=== PATIENT | female | born 2000 | race Caucasian/White ===

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

== ENCOUNTER 2020-02-24 02:04 | Emergency (ER) | payer BC, MEDICAID ==
[~2020-02-24] VITALS: Ht 162.6 cm; Wt 58.0 kg
[2020-02-24] MEDS ORDERED: PENI500T (02:16)
[2020-02-24] MEDS ORDERED: NS 1,000 ML IV SCH (02:45)
[2020-02-24 03:00] LABS: HEMATOCRIT 34.3 % (36.0-47.0); HEMOGLOBIN 11.2 g/dl (12.0-15.5); MEAN CORPUSCULAR HEMOGLOBIN 28.8 pg (27.0-33.0); MEAN CORPUSCULAR HGB CONC 32.7 g/dl (32.0-36.5); MEAN CORPUSCULAR VOLUME 88.2 fl (80.0-96.0); PLATELET COUNT, AUTOMATED 365 10^3/uL (150-450); RED BLOOD COUNT 3.89 10^6/uL (4.00-5.40); WHITE BLOOD COUNT 16.3 10^3/uL (4.0-10.0)
[2020-02-24 03:35] LABS: BLOOD UREA NITROGEN 10 MG/DL (7-18); CALCIUM LEVEL 8.7 MG/DL (8.5-10.1); CARBON DIOXIDE LEVEL 27 MEQ/L (21-32); CHLORIDE LEVEL 105 MEQ/L (98-107); CREATININE FOR GFR 0.61 MG/DL (0.55-1.30); GLUCOSE, FASTING 97 MG/DL (70-100); HCG, SERUM QUANTITATIVE 924 MIU/ML; POTASSIUM SERUM 4.5 MEQ/L (3.5-5.1); SODIUM LEVEL 139 MEQ/L (136-145)
[2020-02-24] MEDS ORDERED: FLAG500T PO (05:20)
[2020-02-24] MEDS ORDERED: metroNIDAZOLE (FLAGYL) 500MG TABLET PO ONE (05:30)
[2020-02-24 05:44] VITALS: BP 118/60
--- NOTE | 2020-03-03 11:52 | REP ---
FIRST TRIMESTER ULTRASOUND HISTORY: Complete , rule out retained products of conception. TECHNIQUE: Real-time sonographic evaluation of the pelvis is performed utilizing transabdominal technique. FINDINGS: Uterus measures 11.3 x 6.1 x 7.0 cm. Endometrial thickness is variable throughout and the endometrium is mildly heterogeneous. In the region of the fundus, the AP diameter is 18 mm. In the region of the lower uterine segments AP diameter is somewhat less. There is no compelling sonographic evidence of retained products of conception. No endometrial fluid collection is seen. No intrauterine is seen. There appear to be echogenic blood clots in the lower uterine segment and vagina. Ovaries are normal in size and echotexture with no torsion with duplex Doppler evaluation. Right ovary measures 3.1 x 2.0 x 2.3 cm and the left ovary 2.9 x 1.8 x 3.2 cm. No free fluid is seen. IMPRESSION: No intrauterine gestation. Variable endometrial thickening up to 18 mm with no endometrial fluid collection and no definite sonographic evidence of retained products of conception. There does appear to be echogenic blood clots in the lower uterine segment and vagina. Preliminary report provided by [facility] at the time of the exam. [facility]
== END 2020-02-24 06:08 | disposition home or self-care (01) ==
LOC: M ED 02:04
DX: O03.9 Complete or unspecified spontaneous abortion without complication (principal)

== ENCOUNTER → 2021-03-24 | Outpatient (CLI) | payer MEDICAID, OTHER ==
--- NOTE | 2021-03-24 12:06 | REP ---
INDICATION: ANATOMY. COMPARISON: None. TECHNIQUE: Real-time sonographic evaluation of the gravid uterus performed. FINDINGS: Estimated gestational age is21 weeks 4 days, EDC 07/31/2021. Today's measurements indicate appropriate growth. Presentation: Cephalic Placenta posterior and fundal, grade 0, without evidence of placenta previa. heart rate is recorded at 147 beats per minute. Amniotic fluid is subjectively normal. Closed cervical length is measured at 3.9 cm. Biometry chart: BPD: 55 mm, 22 weeks 5 days, 80th percentile. HC: 196 mm, 21 weeks 6 days, 58th percentile AC: 170 mm, 22 weeks 0 days, 58th percentile Femur length: 36 mm, 21 weeks 2 days, 42nd percentile HC to AC ratio: 1.16, normal range 1.05-1.24. Estimated weight: 444g, 51st percentile. anatomy: Cranium: Grossly normal Lateral Ventricles/Choroid Plexus: Grossly normal Posterior Fossa/Cerebellum: Grossly normal Nose/lips/profile: Grossly normal Four chamber heart: Grossly normal Right ventricular outflow tract: Grossly normal Left ventricular outflow tract: Grossly normal Left-sided stomach: Grossly normal Kidneys: Grossly normal Bladder: Grossly normal Cord Insertion: Grossly normal 3 vessel cord: Grossly normal Spine: Grossly normal IMPRESSION: Viable single intrauterine gestation as above. <Electronically signed by Zuhair Krishnan > 03/24/21 1209
== END ==
LOC: M WHC 09:27
PROVIDERS: ATTEND Advanced Practice Midwife
DX: Z34.82 Encounter for supervision of other normal pregnancy, second trimester (principal); Z3A.21 21 weeks gestation of pregnancy

== ENCOUNTER → 2021-05-11 | Outpatient (CLI) | payer OTHER ==
[2021-05-11 11:17] LABS: HEMATOCRIT 33.8 % (36.0-47.0); HEMOGLOBIN 10.8 g/dl (12.0-15.5); MEAN CORPUSCULAR HEMOGLOBIN 29.7 pg (27.0-33.0); MEAN CORPUSCULAR VOLUME 92.9 fl (80.0-96.0); PLATELET COUNT, AUTOMATED 416 10^3/uL (150-450); RED BLOOD COUNT 3.64 10^6/uL (4.00-5.40); WHITE BLOOD COUNT 12.6 10^3/uL (4.0-10.0)
[2021-05-11 12:55] LABS: GC DNA AMPLIFICATION NEGATIVE (NEGATIVE)
== END ==
LOC: M PLALAB 08:16
PROVIDERS: ATTEND Specialist
DX: Z00.00 Encounter for general adult medical examination without abnormal findings (principal); N39.9 Disorder of urinary system, unspecified

== ENCOUNTER → 2021-07-10 | Outpatient (REF) | payer OTHER | LOC: M PLALAB 10:40 | PROVIDERS: ATTEND Obstetrics & Gynecology | DX: Z34.93 Encounter for supervision of normal pregnancy, unspecified, third trimester (principal) ==

== ENCOUNTER 2021-07-26 17:44 | Inpatient (IN) | payer OTHER ==
[~2021-07-26] VITALS: Ht 162.6 cm; Wt 67.3 kg
[2021-07-26] VITALS (16 sets, daily range): BP systolic 94–130; BP diastolic 51–84
[2021-07-26] MEDS ORDERED: PRENTAB9 PO (18:08)
[2021-07-26] MEDS ORDERED: HOME MED LIST COMPLETE! XX SCH (18:10)
[2021-07-26] MEDS ORDERED: TRANEXAMIC ACID INJection 1,000 MG in NS 100 ML IV PRN (19:10)
[2021-07-26] MEDS ORDERED: METHYLERGONOVINE MALEATE 0.2 MG/ML VIAL (J2210) IM PRN (19:10)
[2021-07-26] MEDS ORDERED: LIDOCAINE 1% MDV 20ML VIAL INFIL PRN (19:10)
[2021-07-26] MEDS ORDERED: CARBOPROST TROMETHAMINE 250 MCG/ML AMP IM PRN (19:10)
[2021-07-26 19:37] LABS: HEMATOCRIT 32.4 % (36.0-47.0); HEMOGLOBIN 10.6 g/dl (12.0-15.5); MEAN CORPUSCULAR HEMOGLOBIN 27.7 pg (27.0-33.0); MEAN CORPUSCULAR HGB CONC 32.7 g/dl (32.0-36.5); MEAN CORPUSCULAR VOLUME 84.8 fl (80.0-96.0); PLATELET COUNT, AUTOMATED 497 10^3/uL (150-450); RED BLOOD COUNT 3.82 10^6/uL (4.00-5.40); WHITE BLOOD COUNT 15.1 10^3/uL (4.0-10.0)
[2021-07-26] MEDS: LR 1,000 ML IV SCH ×2 (19:41→21:46)
[2021-07-26] MEDS ORDERED: FENTANYL 2MCG/ML ROPIVACAINE 0.2% IN 0.9% NACL 100ML IVBAG As Ordered ONE (20:36)
[2021-07-26 20:55] LABS: HIV 1&2 SCREEN CENTAUR NEGATIVE (NEGATIVE)
[2021-07-26] MEDS ORDERED: EPIDURAL COMMENT XX SCH (22:00)
[2021-07-26] MEDS ORDERED: ePHEDrine SULFATE 25 MG/5 ML(5MG/ML) SYRINGE IV PRN (22:00)
[2021-07-26] MEDS ORDERED: NALOXONE INJ 0.4MG/1ML VIAL (J2310 PER 1MG) IV PRN (22:00)
[2021-07-26] MEDS ORDERED: diphenhydrAMINE 50MG/ML VIAL (J1200) IV PRN (22:00)
[2021-07-26] MEDS ORDERED: FENTANYL/ROPIVACAINE/NACL BAG 100 ML EPIDURAL SCH (22:00)
[2021-07-26] MEDS ORDERED: ONDANSETRON 4MG/2ML VIAL IV PRN (22:00)
[2021-07-26] MEDS ORDERED: REFRIGERATOR IV KEYS XX PRN (22:00)
[2021-07-26] MEDS ORDERED: EPIDURAL/PCA KEYS XX PRN (22:00)
[2021-07-26] MEDS ORDERED: LACTATED RINGER'S 1000 ML IV PRN (22:00)
[2021-07-27] VITALS (11 sets, daily range): BP systolic 107–137; BP diastolic 56–82
[2021-07-27] MEDS ORDERED: OXYTOCIN 30 UNITS IN 0.9% NaCl 500ML IV BAG (J2590) As Ordered ONE (01:23)
[2021-07-27] MEDS ORDERED: IBUPROFEN 600MG TAB PO PRN (01:50)
[2021-07-27] MEDS ORDERED: DOCUSATE SODIUM 100MG CAPSULE PO PRN (01:50)
[2021-07-27] MEDS ORDERED: ACETAMINOPHEN TAB 650MG DOSE (2X325MG) PO PRN (01:50)
[2021-07-27] MEDS ORDERED: RHOGAM 300 MCG (1500 IU) INJ (J2790) IM SCH (01:50)
[2021-07-27] MEDS ORDERED: DIBUCAINE 1% OINTMENT 30GM TOP PRN (01:50)
[2021-07-27] MEDS ORDERED: OXYTOCIN DRIP 30 UNITS in IV 1 EA IV SCH (01:50)
[2021-07-27] MEDS ORDERED: METHYLERGONOVINE MALEATE 0.2 MG TAB PO PRN (01:50)
[2021-07-27] MEDS ORDERED: ACETAMINOPHEN 500 MG TAB PO PRN (01:50)
[2021-07-27] MEDS ORDERED: MEASLES,MUMPS,RUBELLA VACCINE INJ (MMR-II) (90707) SC SCH (01:50)
[2021-07-27] MEDS ORDERED: MOM 30ML SUSPENSION UDC PO PRN (01:50)
[2021-07-27] MEDS: PRENATAL VITAMINS CHEWABLE TABLET PO SCH (09:47)
[2021-07-27] MEDS: IBUPROFEN 800 MG TAB PO PRN (19:35)
[2021-07-28] MEDS: IBUPROFEN 800 MG TAB PO PRN ×2 (05:29→15:25)
[2021-07-28 06:00] VITALS: BP 122/73
[2021-07-28] MEDS: PRENATAL VITAMINS CHEWABLE TABLET PO SCH (09:42)
[2021-07-28 18:00] VITALS: BP 131/66
[2021-07-29] MEDS: IBUPROFEN 800 MG TAB PO PRN (05:23)
[2021-07-29 06:00] VITALS: BP 131/70
[2021-07-29] MEDS: PRENATAL VITAMINS CHEWABLE TABLET PO SCH (09:01)
== END 2021-07-29 13:15 | disposition home or self-care (01) | DRG 560 ==
LOC: M LDO 17:44 → M LDI 18:43 → M OBS 07-27 03:46
PROVIDERS: ADMIT Obstetrics & Gynecology; ATTEND Obstetrics & Gynecology
PROC: 10E0XZZ Delivery of Products of Conception, External Approach (ICD-10-PCS; principal; 2021-07-27)
PROC: 0HQ9XZZ Repair Perineum Skin, External Approach (ICD-10-PCS; 2021-07-27)
DX: O70.0 First degree perineal laceration during delivery (principal); Z37.0 Single live birth; Z3A.39 39 weeks gestation of pregnancy

== ENCOUNTER → 2022-01-16 | Outpatient (REF) | payer OTHER ==
[~2022-01-16] MED LIST changes: +PRENTAB9 PO
== END ==
LOC: M PLALAB 16:20
PROVIDERS: ATTEND Obstetrics & Gynecology
DX: Z01.419 Encounter for gynecological examination (general) (routine) without abnormal findings (principal)

== ENCOUNTER → 2022-04-10 | Outpatient (REF) | LOC: M EMP 12:54 | PROVIDERS: ATTEND Family Medicine | DX: Z11.52 Encounter for screening for COVID-19 (principal) ==

== ENCOUNTER → 2022-04-17 | Outpatient (REF) | LOC: M EMP 07:47 | PROVIDERS: ATTEND Family Medicine | DX: Z11.52 Encounter for screening for COVID-19 (principal) ==

== ENCOUNTER → 2022-04-23 | Outpatient (REF) | LOC: M EMP 09:49 | PROVIDERS: ATTEND Family Medicine | DX: Z11.52 Encounter for screening for COVID-19 (principal) ==

== ENCOUNTER → 2022-08-06 | Outpatient (REF) | LOC: M LABSMTC 09:21 | PROVIDERS: ATTEND Family Medicine | DX: Z11.52 Encounter for screening for COVID-19 (principal) ==

== ENCOUNTER → 2023-07-17 | Outpatient (CLI) | payer OTHER ==
[2023-07-17 11:47] LABS: HEMATOCRIT 41.5 % (36.0-47.0); HEMOGLOBIN 13.2 g/dl (12.0-15.5); MEAN CORPUSCULAR HEMOGLOBIN 28.4 pg (27.0-33.0); MEAN CORPUSCULAR HGB CONC 31.8 g/dl (32.0-36.5); MEAN CORPUSCULAR VOLUME 89.4 fl (80.0-96.0); PLATELET COUNT, AUTOMATED 465 10^3/uL (150-450); RED BLOOD COUNT 4.64 10^6/uL (4.00-5.40); WHITE BLOOD COUNT 10.8 10^3/uL (4.0-10.0)
[2023-07-17 12:45] LABS: HIV 1&2 SCREEN NEGATIVE (NEGATIVE)
[2023-07-17 12:53] LABS: HEPATITIS C VIRUS ABY INDEX < 0.02 INDEX (<0.8)
[2023-07-17 14:23] LABS: CHLAMYDIA DNA AMPLIFICATION POSITIVE (NEGATIVE); GC DNA AMPLIFICATION NEGATIVE (NEGATIVE)
== END ==
LOC: M PLALAB 08:06
PROVIDERS: ATTEND Advanced Practice Midwife
DX: Z34.91 Encounter for supervision of normal pregnancy, unspecified, first trimester (principal)

== ENCOUNTER → 2023-08-16 | Outpatient (CLI) | payer OTHER | LOC: M PLALAB 11:43 | PROVIDERS: ATTEND Advanced Practice Midwife | DX: Z34.92 Encounter for supervision of normal pregnancy, unspecified, second trimester (principal) ==

== ENCOUNTER → 2023-09-26 | Outpatient (CLI) | payer OTHER | LOC: M WHC 08:50 | PROVIDERS: ATTEND Advanced Practice Midwife | DX: Z34.92 Encounter for supervision of normal pregnancy, unspecified, second trimester (principal) ==

== ENCOUNTER → 2023-10-24 | Outpatient (CLI) | payer OTHER | LOC: M WHC 06:45 | PROVIDERS: ATTEND Obstetrics & Gynecology | DX: Z36.2 Encounter for other antenatal screening follow-up (principal) ==

== ENCOUNTER → 2023-11-29 | Outpatient (CLI) | payer OTHER ==
[2023-11-29 11:44] LABS: HEMATOCRIT 33.6 % (36.0-47.0); HEMOGLOBIN 10.6 g/dl (12.0-15.5); MEAN CORPUSCULAR HEMOGLOBIN 28.3 pg (27.0-33.0); MEAN CORPUSCULAR HGB CONC 31.5 g/dl (32.0-36.5); MEAN CORPUSCULAR VOLUME 89.8 fl (80.0-96.0); PLATELET COUNT, AUTOMATED 511 10^3/uL (150-450); RED BLOOD COUNT 3.74 10^6/uL (4.00-5.40); WHITE BLOOD COUNT 12.6 10^3/uL (4.0-10.0)
[2023-11-29 12:44] LABS: GC DNA AMPLIFICATION NEGATIVE (NEGATIVE)
== END ==
LOC: M PLALAB 07:06
PROVIDERS: ATTEND Obstetrics & Gynecology
DX: Z34.92 Encounter for supervision of normal pregnancy, unspecified, second trimester (principal)

== ENCOUNTER → 2024-01-27 | Outpatient (REF) | payer OTHER | LOC: M PLALAB 11:06 | PROVIDERS: ATTEND Specialist | DX: Z34.83 Encounter for supervision of other normal pregnancy, third trimester (principal) ==

== ENCOUNTER 2024-02-09 09:56 | Inpatient (IN) | payer OTHER ==
[~2024-02-09] VITALS: Ht 162.6 cm; Wt 61.4 kg
[2024-02-09] VITALS (15 sets, daily range): BP systolic 98–123; BP diastolic 55–74; O2SAT 98–100
[2024-02-09] MEDS ORDERED: HOME MED LIST COMPLETE! XX SCH (10:15)
[2024-02-09] MEDS ORDERED: CARBOPROST TROMETHAMINE 250 MCG/ML AMP IM PRN (10:30)
[2024-02-09] MEDS ORDERED: LIDOCAINE 1% MDV 20ML VIAL INFIL PRN (10:30)
[2024-02-09] MEDS ORDERED: TRANEXAMIC ACID INJection 1,000 MG in NS 100 ML IV PRN (10:30)
[2024-02-09] MEDS ORDERED: METHYLERGONOVINE MALEATE 0.2MG/ML 1ML VIAL IM PRN (10:30)
[2024-02-09] MEDS ORDERED: OXYTOCIN INJ 10UNITS/ML 1ML VIAL IM PRN (10:30)
[2024-02-09] MEDS: LACTATED RINGER'S 1000 ML IV STA (10:49)
[2024-02-09 11:00] LABS: HEMATOCRIT 30.5 % (36.0-47.0); HEMOGLOBIN 9.8 g/dl (12.0-15.5); MEAN CORPUSCULAR HGB CONC 32.1 g/dl (32.0-36.5); MEAN CORPUSCULAR VOLUME 80.9 fl (80.0-96.0); PLATELET COUNT, AUTOMATED 416 10^3/uL (150-450); RED BLOOD COUNT 3.77 10^6/uL (4.00-5.40); WHITE BLOOD COUNT 16.6 10^3/uL (4.0-10.0)
[2024-02-09] MEDS ORDERED: ePHEDrine SULFATE 25 MG/5 ML(5MG/ML) SYRINGE IVP PRN (11:20)
[2024-02-09] MEDS ORDERED: NALOXONE INJ 0.4MG/1ML VIAL IV PRN (11:20)
[2024-02-09] MEDS ORDERED: LR 500 ML IV PRN (11:20)
[2024-02-09] MEDS ORDERED: diphenhydrAMINE 50MG/ML VIAL IV PRN (11:20)
[2024-02-09] MEDS ORDERED: ONDANSETRON 4MG 2ML VIAL IV PRN (11:20)
[2024-02-09] MEDS ORDERED: EPIDURAL/PCA KEYS XX PRN (11:20)
[2024-02-09] MEDS: FENTANYL/ROPIVACAINE/NACL BAG 100 ML EPIDURAL SCH (11:48)
[2024-02-09 11:59] LABS: HEPATITIS C VIRUS ABY INDEX < 0.02 INDEX (<0.8)
[2024-02-09] MEDS: OXYTOCIN DRIP 30 UNITS in IV 1 EA IV PRN (12:23)
[2024-02-09] MEDS ORDERED: MOM 30ML SUSPENSION UDC PO PRN (13:00)
[2024-02-09] MEDS ORDERED: RHO(D) IMMUNE GLOBULIN/MALTOSE 500MCG(2500IU)/2.2ML VIAL (WINRHO) IM SCH (13:00)
[2024-02-09] MEDS ORDERED: ANUSOL HC CREAM 30GM TOP PRN (13:00)
[2024-02-09] MEDS ORDERED: DIBUCAINE 1% OINTMENT 30GM TOP PRN (13:00)
[2024-02-09] MEDS ORDERED: IBUPROFEN 600MG TAB PO PRN (13:00)
[2024-02-09] MEDS ORDERED: DOCUSATE SODIUM 100MG CAPSULE PO PRN (13:00)
[2024-02-09] MEDS ORDERED: ACETAMINOPHEN 500 MG TAB PO PRN (13:00)
[2024-02-09] MEDS ORDERED: ACETAMINOPHEN TAB 650MG DOSE (2X325MG) PO PRN (13:00)
[2024-02-09] MEDS: IBUPROFEN 800 MG TAB PO PRN (16:28)
[2024-02-10 06:00] VITALS: BP 115/55; O2SAT 100
[2024-02-10] MEDS: PRENATAL VITAMINS CHEWABLE TABLET PO SCH (08:49)
[2024-02-10] MEDS ORDERED: ACET-683 PO (11:29)
[2024-02-10] MEDS ORDERED: IBUP80TA PO (11:29)
[2024-02-11] MEDS ORDERED: MEASLES,MUMPS,RUBELLA VACCINE INJ (MMR-II) SC.IMMUN ONE (09:00)
== END 2024-02-10 14:35 | disposition home or self-care (01) | DRG 560 ==
LOC: M LDO 09:56 → M LDI 10:27 → M OBS 14:01
PROVIDERS: ADMIT Advanced Practice Midwife; ATTEND Advanced Practice Midwife
PROC: 10E0XZZ Delivery of Products of Conception, External Approach (ICD-10-PCS; principal; 2024-02-09)
DX: O80 Encounter for full-term uncomplicated delivery (principal); Z37.0 Single live birth; Z3A.38 38 weeks gestation of pregnancy

== ENCOUNTER → 2025-03-24 | Outpatient (CLI) | payer OTHER ==
[~2025-03-24] MED LIST changes: +ACET-683 PO; +IBUP80TA PO
[2025-03-24 13:42] LABS: PLATELET COUNT, AUTOMATED 443 10^3/uL (150-450)
[2025-03-24 14:57] LABS: Trichomonas vaginalis (AMP) NOT DETECTED (NEGATIVE)
[2025-03-24 15:22] LABS: GC DNA AMPLIFICATION NEGATIVE (NEGATIVE)
[2025-03-24 17:59] LABS: HIV 1&2 SCREEN NEGATIVE (NEGATIVE)
[2025-03-24 18:07] LABS: HEPATITIS C VIRUS ABY INDEX < 0.02 INDEX (<0.8)
== END ==
LOC: M PLALAB 09:32
PROVIDERS: ATTEND Advanced Practice Midwife
DX: Z34.81 Encounter for supervision of other normal pregnancy, first trimester (principal)

== ENCOUNTER → 2025-05-31 | Outpatient (CLI) | payer MEDICAID, OTHER | LOC: M WHC 07:31 | PROVIDERS: ATTEND Student in an Organized Health Care Education/Training Program | DX: Z34.82 Encounter for supervision of other normal pregnancy, second trimester (principal); Z3A.19 19 weeks gestation of pregnancy ==